=== PATIENT | female | born 1965 | race Caucasian/White ===

== ENCOUNTER 2019-03-03 13:55 | Emergency (ER) | payer MEDICAID, MEDICARE ==
[~2019-03-03] VITALS: Ht 167.6 cm; Wt 81.8 kg
[~2019-03-03 13:55] MED LIST: DULO-31 PO; IBUP-24 PO; SYN0.025T PO
[2019-03-03] MEDS ORDERED: ibuprofen tablet 400 MG TABLET PO ONE (15:00)
[2019-03-03] MEDS ORDERED: LIDOcaine 1% w/EPI 1:200,000 injection 10mL vial IM ONE (15:00)
[2019-03-03] MEDS ORDERED: LIDOcaine 1% W/epiNEPHrine 1:200,000 10ml vial IJ ONE (15:00)
[2019-03-03] MEDS ORDERED: CLIN-90 PO (15:35)
[2019-03-03] MEDS ORDERED: ondansetron 4mg rapidly disintigrating tab PO ONE (15:35)
[2019-03-03 15:58] VITALS: BP 115/71
== END 2019-03-03 15:59 | disposition home or self-care (01) ==
LOC: ER 13:55
DX: L02.214 Cutaneous abscess of groin (principal); L02.415 Cutaneous abscess of right lower limb; G35 Multiple sclerosis; Z88.2 Allergy status to sulfonamides; Z88.8 Allergy status to other drugs, medicaments and biological substances; Z79.2 Long term (current) use of antibiotics; Z79.899 Other long term (current) drug therapy
CPT/HCPCS: 10060; 99283